=== PATIENT | female | born 1990 ===

== ENCOUNTER 2018-11-18 10:08 | Outpatient (CLI) | payer OTHER ==
--- NOTE | 2018-11-18 12:06 | ULT ---
LIMITED LEFT BREAST ULTRASOUND: Date: 11/18/18 PROVIDED CLINICAL HISTORY: Left breast lump. FINDINGS: Limited sonographic interrogation of the left breast was performed in the region of palpable concern. The sonographic appearance of the breast parenchyma in this region is normal. IMPRESSION: No sonographic abnormality is apparent in the region of palpable concern. If there is persistent clin ical concern, consider diagnostic mammography. POS: OFF
== END 2018-11-18 10:09 | disposition home or self-care (01) ==
LOC: BICULT 10:08
PROVIDERS: ATTEND Family Medicine
DX: N63.20 Unspecified lump in the left breast, unspecified quadrant (principal)